=== PATIENT | female | born 1995 | race Caucasian/White ===

== ENCOUNTER 2022-06-08 06:14 | Inpatient (IN) ==
[2022-06-08] MEDS ORDERED: LIDOCAINE 1% LOCAL 20 ML VIAL ONE (06:44)
[2022-06-08] MEDS ORDERED: OXYTOCIN 30 UNITS/500 ML BAG IV PRN ×2 (07:00→07:31)
[2022-06-08] MEDS ORDERED: LIDOCAINE 1% LOCAL 20 ML VIAL INFIL PRN (07:00)
[2022-06-08] MEDS ORDERED: LACTATED RINGER'S 1,000 ML IV PRN (07:00)
--- NOTE | 2022-06-08 07:06 | Delivery Summary ---
Vaginal Delivery Summary Date of Service June 08, 2022 Spontaneous vaginal delivery the patient arrived in active labor at 10 cm this was her third baby membranes were bulging she did not have time for an epidural or antibiotics. Artificial rupture membranes was performed with clear fluid she then pushed over several contractions a baby in occiput anterior position live vigorous female fluid was clear no nuchal cord gentle traction baby delivered without excessive force Cord clamped and cut cord blood obtained placenta removed with gentle traction second-degree tear noted above small injection with lidocaine first and then repaired in usual fashion with 3-0 Vicryl sponge and instrument counts correct estimated blood loss 150ml
[2022-06-08 07:26] LABS: Hematocrit (blood only) 39.6 % (34.1-44.9); Hemoglobin 13.3 g/dl (12.0-16.0); Mean Corpuscular Hemoglobin 27.4 pg (25.0-34.0); Mean Corpuscular Hgb Conc 33.6 g/dL (32.0-36.0); Mean Corpuscular Volume 81.6 fL (80.0-100.0); Mean Platelet Volume 9.6 fL (9.4-12.3); Platelet Count 226 K/uL (130-400); RDW Coefficient of Variation 12.9 % (11.5-14.5); Red Blood Count 4.85 M/uL (3.93-5.22); White Blood Count 11.42 K/ul (4.8-10.8)
[2022-06-08] MEDS ORDERED: ACETAMINOPHEN 325 MG TAB PO PRN (07:31)
[2022-06-08] MEDS ORDERED: DIPHTHERIA/TETANUS/PERTUSSIS 0.5 ML SYR/VIAL IM ONE (07:31)
[2022-06-08] MEDS ORDERED: HYDROCORTISONE ACETATE 25 MG SUPP PR PRN (07:31)
[2022-06-08] MEDS ORDERED: bisacodyL 10 MG SUPP PR PRN (07:31)
[2022-06-08] MEDS ORDERED: oxyCODONE/ACETAMINOPHEN 5mg/325mg TAB PO PRN (07:31)
[2022-06-08] MEDS ORDERED: BENZOCAINE 20% AER SPR 82.5 GM CAN EXT PRN (07:31)
[2022-06-08] MEDS: IBUPROFEN 600 MG TAB PO PRN ×4 (09:07→23:45)
[2022-06-08] MEDS: PRENATAL VITAMIN 1 TAB PO SCH (09:07)
[2022-06-08] MEDS: DOCUSATE SODIUM 100 MG CAP PO SCH ×2 (09:07→20:26)
[2022-06-09] MEDS: IBUPROFEN 600 MG TAB PO PRN ×2 (04:22→10:03)
[2022-06-09 06:25] LABS: Hematocrit (blood only) 35.4 % (34.1-44.9); Hemoglobin 11.8 g/dl (12.0-16.0); Mean Corpuscular Hemoglobin 27.8 pg (25.0-34.0); Mean Corpuscular Hgb Conc 33.3 g/dL (32.0-36.0); Mean Corpuscular Volume 83.3 fL (80.0-100.0); Mean Platelet Volume 9.8 fL (9.4-12.3); Platelet Count 210 K/uL (130-400); RDW Coefficient of Variation 13.2 % (11.5-14.5); RDW Standard Deviation 39.7 fL (36.4-46.3); Red Blood Count 4.25 M/uL (3.93-5.22); White Blood Count 12.55 K/ul (4.8-10.8)
--- NOTE | 2022-06-09 07:26 | Obstetrical Progress Note ---
Date of Service <Adam OviedoJermaine Michael - Last Filed: 06/09/22 07:37> June 09, 2022 Assessment & Plan <Adam Rodriguez - Last Filed: 06/09/22 07:37> (1) Encounter for care and examination after delivery: - Feels well today. Eating well, voiding well, ambulating well. - Pain well controlled with prn pain meds - Routine care -- OOB, ambulation, diet progression as tolerated - After discharge will have 6 week follow-up with Dr. Meier. <Jennifer Meier MD, FACOG - Last Filed: 06/09/22 07:47> (1) Encounter for care and examination after delivery: Subjective <Adam Betancurpadmini - Last Filed: 06/09/22 07:37> Ambulation: ambulating normally Voiding: no voiding problems Passing Gas:: Yes Diet Tolerance:: regular diet Lochia:: Small Feeding Type:: breast feeding Current Pain Level(1-10): 0 Patient is a 26 y/o female who is now PPD # 1 following spontaneous vaginal delivery at 39 weeks. Reports feeling well overall this morning. Mild abdominal cramping & 0-1/10 pain well managed on analgesics. Voiding well. Tolerating meals overnight and able to ambulate some. Able to pass gas and has not had a bowel movement. Has some persistent lochia with some improvement this morning. Currently breast feeding. Review of Systems Denies fever, chills, sweats Denies shortness of breath, difficulty breathing, chest pain, palpitations, chest pressure. Mild breast tenderness Denies dysuria. Denies headache or changes in vision. Physical Exam <Adam OviedoJermaine Pipepadmini - Last Filed: 06/09/22 07:37> General: Alert, oriented. No acute distress. Cardiac: Regular rate and rhythm, no murmurs/rubs/gallops. Respiratory: Clear to auscultation bilaterally a/p, no wheezes/rales/rhonchi. No increased work of breathing. Symmetrical chest rise. No respiratory distress. Abdomen: Soft, nontender, nondistended. Bowel sounds present. Uterus: Uterine fundus firm, palpable 2 cm below umbilicus. Lower Extremities: No lower extremity edema or swelling. No deep calf pain. Vida's negative bilaterally. Results & Data ([facility]) <Adam Rodriguez DO - Last Filed: 06/09/22 07:37> Vital Signs (Past 12 Hours) Vital Signs Temp Pulse Resp BP Pulse Ox O2 Del Method 06/09/22 04:00 36.6 C 78 18 106/74 96 Room Air 06/08/22 22:55 36.7 C 70 18 112/74 98 Room Air 06/08/22 20:15 36.5 C 79 18 100/62 97 Room Air <Jennifer Meier MD, FACOG - Last Filed: 06/09/22 07:47> Co-Signing Physician Notes Resident Physician Supervision Note: I interviewed and examined the patient. Discussed with [Name of resident] and agree with findings and plan as documented in the note. Any exceptions or clarifications are listed here: [None] Documented By: Jennifer Meier MD, FACOG Resident Activity Tracking <Adam Rodriguez DO - Last Filed: 06/09/22 07:37> Resident Involvement: Resident Care Provided Care Provided: OB Delivery
[2022-06-09] MEDS: PRENATAL VITAMIN 1 TAB PO SCH (07:58)
[2022-06-09] MEDS: DOCUSATE SODIUM 100 MG CAP PO SCH (07:58)
[2022-06-09] MEDS ORDERED: bisacodyL 5 MG TABEC PO SCH (20:00)
== END 2022-06-09 10:30 | disposition home or self-care (01) | DRG 807 ==
LOC: OPB 06:14 → 4S1 06:19 → 4E2 09:50